=== PATIENT | male | born 1945 | race Caucasian/White ===

== ENCOUNTER 2016-10-27 10:59 | Emergency (ER) | payer OTHER, MEDICARE ==
[~2016-10-27] VITALS: Ht 167.6 cm; Wt 88.8 kg
[~2016-10-27 10:59] MED LIST: AMLODIPINE BESYL5 MG PO; ASPIR-LOW81 M1 PO; ASPIRIN81 M2 PO; ATORVASTATIN CA40 MG PO; BENICAR40 MG PO; CADUET 5/401 TABLET PO; DAILY VITAMIN1 EAC8 PO; LOSARTAN POTAS100 MG PO; OCUVITE TABLET1 EACH PO; Protonix PO
[2016-10-27 12:20] LABS: EOSINOPHIL (%) 1.2 % (0-5); EOSINOPHIL COUNT 0.1 K/uL (0-0.3); HEMATOCRIT 42.3 % (38.0-50.0); IMMATURE GRANULOCYTE (%) 0.4 % (0.0-0.7); INSTRUMENT ABS NEUTROPHIL CT 3.7 K/uL; LYMPHOCYTE COUNT 0.7 K/uL (1.0-2.8); MCH 29.2 PG (29.0-34.0); MCHC 33.6 G/DL (30.0-36.0); MCV 86.9 FL (86-99); MEAN PLAT.VOLUME 10.7 uM^3 (9.0-12.4); MONOCYTE (%) 9.2 % (3-12); MONOCYTE COUNT 0.5 K/uL (0-0.8); NEUTROPHIL (%) 75.4 % (45-76); NEUTROPHIL COUNT 3.7 K/uL (1.8-6.4); PLATELET COUNT 148 K/uL (156-360); RBC DIS.WIDTH-CV 13.4 % (11.8-14.6); RED BLOOD COUNT 4.87 M/uL (4.00-5.50); WHITE BLOOD COUNT 4.9 K/uL (4.1-10.2)
[2016-10-27 12:28] LABS: CHLORIDE 108 mEq/L (99-109); POTASSIUM 4.2 mEq/L (3.7-5.4); SODIUM 141 mEq/L (136-147)
[2016-10-27 12:30] LABS: GLUCOSE 112 mg/dL (70-99)
[2016-10-27 12:31] LABS: ANION GAP 6 MEQ/L (2-14)
[2016-10-27 12:34] LABS: GFR ESTIMATE (CALCULATED) > 59 mL/min/
[2016-10-27 12:35] LABS: UREA NITROGEN (BUN) 14 mg/dL (9-23)
[2016-10-27] MEDS ORDERED: ANTIVERT25 MG PO (13:29)
[2016-10-27 13:49] VITALS: BP 117/72
== END 2016-10-27 13:59 | disposition home or self-care (01) ==
LOC: EME 10:59
PROVIDERS: Emergency Medicine
DX: R42 Dizziness and giddiness (principal); I10 Essential (primary) hypertension; Z95.5 Presence of coronary angioplasty implant and graft; Z79.82 Long term (current) use of aspirin
CPT/HCPCS: 70450; 80048; 85025; 93005; 99281; 99284